=== PATIENT | female | born 1970 | race Caucasian/White ===

== ENCOUNTER 2016-09-18 09:43 | Outpatient (CLI) | payer OTHER | END 2016-09-18 09:44 | disposition home or self-care (01) | LOC: NC 09:43 | PROVIDERS: ATTEND Family Medicine | DX: E11.8 Type 2 diabetes mellitus with unspecified complications (principal) ==

== ENCOUNTER 2016-10-03 08:51 | Outpatient (CLI) | payer OTHER | END 2016-10-03 08:52 | disposition home or self-care (01) | LOC: NC 08:51 | PROVIDERS: ATTEND Family Medicine | DX: E11.9 Type 2 diabetes mellitus without complications (principal); Z71.3 Dietary counseling and surveillance; E66.9 Obesity, unspecified; Z68.41 Body mass index [BMI] 40.0-44.9, adult; E78.2 Mixed hyperlipidemia; Z79.84 Long term (current) use of oral hypoglycemic drugs ==

== ENCOUNTER 2016-10-24 09:00 | Outpatient (CLI) | payer OTHER | END 2016-10-24 09:01 | disposition home or self-care (01) | LOC: NC 09:00 | PROVIDERS: ATTEND Family Medicine | DX: E11.9 Type 2 diabetes mellitus without complications (principal); Z71.3 Dietary counseling and surveillance; E66.9 Obesity, unspecified; Z68.41 Body mass index [BMI] 40.0-44.9, adult; E78.2 Mixed hyperlipidemia; Z79.84 Long term (current) use of oral hypoglycemic drugs ==